=== PATIENT | male | born 1960 | race Caucasian/White ===

== ENCOUNTER 2019-07-05 01:04 | Emergency (ER) | payer OTHER ==
[2019-07-05] MEDS ORDERED: Acetaminophen 325 MG Tab PO ONE (01:26)
[2019-07-05] MEDS ORDERED: Iopamidol 612 MG/ML 75 ML Bottle IVPUSH ONE (02:16)
[2019-07-05] MEDS ORDERED: Iopamidol 612 MG/ML 100 ML Bottle IVPUSH ONE (02:20)
[2019-07-05 02:24] LABS: ANION GAP 12.2; CHLORIDE,CL 102 mmol/L (101-111); SODIUM,NA 136 mmol/L (135-145)
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
== END 2019-07-05 03:16 | disposition home or self-care (01) ==
LOC: DL.ED 01:04
DX: S22.31XA Fracture of one rib, right side, initial encounter for closed fracture (principal); S46.912A Strain of unspecified muscle, fascia and tendon at shoulder and upper arm level, left arm, initial encounter; S16.1XXA Strain of muscle, fascia and tendon at neck level, initial encounter; S00.03XA Contusion of scalp, initial encounter; F10.129 Alcohol abuse with intoxication, unspecified; F17.210 Nicotine dependence, cigarettes, uncomplicated; Y04.0XXA Assault by unarmed brawl or fight, initial encounter; Y90.6 Blood alcohol level of 120-199 mg/100 ml
CPT/HCPCS: 36415; 71260; 72125; 73030; 74177; 80053; 80305; 81001; 82150; 85025; 99284; A9270; G0480; Q9967